=== PATIENT | female | born 1975 | race Caucasian/White ===

== ENCOUNTER → 2018-04-03 11:03 | Outpatient (CLI) | payer MEDICAID, SELFPAY ==
[2018-04-04 14:39] LABS: HPV Reflexed? NOT INDICATED
== END ==
PROVIDERS: Visit Provider Obstetrics & Gynecology
DX: Z12.4 Encounter for screening for malignant neoplasm of cervix (principal)
CPT/HCPCS: 88175; G0145

== ENCOUNTER → 2019-03-13 | Outpatient (CLI) | payer MEDICAID, SELFPAY ==
[2014-09-14 22:21] VITALS: BMI 41.0
[2019-03-19 08:55] LABS: HPV Reflexed? NOT INDICATED
== END | disposition home or self-care (01) ==
LOC: WOBLAB 13:51
PROVIDERS: Visit Provider Obstetrics & Gynecology
DX: Z12.4 Encounter for screening for malignant neoplasm of cervix (principal)
CPT/HCPCS: 87624; 88175; G0145

== ENCOUNTER 2019-09-04 17:05 | Emergency (ER) | payer MEDICAID, SELFPAY ==
[2019-09-04 17:05] VITALS: BP 133/74; PULSE 84; RESP 16; TEMP 36.7; BMI 41.2
[2019-09-04 17:46] LABS: Absolute Neutrophil Count 4.3 X10^3/uL (2.0-7.7); Bacteria 0 SEEN /hpf (None Seen); Basophil# 0.04 X10^3/uL; Basophil% 0.6 % (0-1); Color, Urine Yellow (Yellow); Eosinophil# 0.05 X10^3/uL; Eosinophils% 0.7 % (0-5); Glucose, Dipstick Normal (Normal); Hematocrit 43.2 % (37-47); Hemoglobin 14.2 g/dL (12.0-15.0); Ketone-Dipstick 5 mg/dl (Negative); Leukocyte Esterase-Dipstick Negative /ul (Negative); Lymphocyte % 26.1 % (19-41); Mean Corp Hgb Conc 32.9 g/dL (32-36); Mean Corpuscular Hgb 30.7 pg (27.0-32.0); Mean Corpuscular Volume 93.5 fL (81-99); Mean Platelet Vol. 9.5 fl (6.2-12.0); Monocyte# 0.94 X10^3/uL; Monocyte% 12.9 % (0-10); Mucous, Urine 0 SEEN /hpf (<or=2+); NRBC Flagged by Analyzer 0 % (0-5); Neutrophil # 4.32 X10^3/uL (2.7-7.7); Neutrophil % 59.4 % (47-70); Nitrite-Dipstick Negative (Negative); Occult Blood-Urine 10 /ul (Negative); Platelet Count 219 K/mm3 (150-450); Protein-Dipstick Negative (Negative); RBC Distribution Width CV 11.9 % (11.6-14.6); RBC Distribution Width SD 40.9 fl (35.1-43.9); Red Blood Count 4.62 M/mm3 (4.2-5.4); Specific Gravity, Urine 1.025 (1.002-1.030); Urine Bilirubin Dipstick Negative (Negative); Urine Clarity Clear (Clear); Urine Urobilinogen Normal (Normal); White Blood Count 7.3 K/mm3 (4.4-11.0)
[2019-09-04 17:53] LABS: Squamous Epithelial Cells - UA 0-5 SEEN /hpf (5-10)
[2019-09-04 17:55] LABS: Red Blood Cells-Urine 0-5 SEEN /hpf (0-5)
[2019-09-04 17:56] LABS: White Blood Cells 0-5 SEEN /hpf (0-5)
[2019-09-04 18:00] LABS: D-Dimer Quantitative (DVT/PE) 0.68 FEU/ug/m (0.27-0.49)
[2019-09-04 18:04] LABS: ALB/GLOB Ratio 0.9 RATIO (0.9-2.4); AST(SGOT) 22 U/L (15-37); Alanine Aminotransfer ALT/SGPT 35 U/L (13-56); Albumin, Serum 3.6 g/dL (3.2-5.0); Alkaline Phosphatase 63 U/L (45-117); Anion Gap 5 (5-15); BUN 12 mg/dL (7-18); BUN/Creat Ratio 17.3 RATIO (10-20); Calcium,Total 9.3 mg/dL (8.5-10.1); Chloride 106 mmol/L (98-107); Creatinine, Serum 0.69 mg/dL (0.55-1.02); EST Glomerular Filtration Rate 97 mL/min (>60); Est Glom Filt Rate - Afr Amer 117 mL/min (>60); Estimated Creatinine Clearance 96.39 ml/min; Globulin 4.2 g/dL (2.2-4.2); Glucose 113 mg/dL (74-106); Lipase 122 U/L (73-393); Potassium 3.9 mmol/L (3.5-5.1); Protein, Total 7.8 g/dL (6.4-8.2); Sodium Level 141 mmol/L (136-145)
--- NOTE | 2019-09-04 18:14 | CT_ITS ---
STUDY: CTA CHEST REASON FOR EXAM: Female, 43 years old. Back pain RADIATION DOSAGE (If Supplied By Facility): CTDIvol = ( 16.09 ) mGy, DLP = ( 526.13 ) mGycm TECHNIQUE: The examination was performed with the intravenous administration of IV Isovue 370 100ML. Post-processing of the angiographic images was performed, with multiplanar reformation and 3D reconstruction. Individualized dose optimization techniques were used for this CT. COMPARISON: None. FINDINGS: Normal enhancement of the main pulmonary artery and right and left pulmonary arteries. Normal enhancement of the bilateral peripheral pulmonary arteries. There is no demonstrated pulmonary embolism. Normal thoracic aorta and visualized great vessels. There is no demonstrated aortic dissection. Normal heart and pericardium. Normal mediastinum. Normal hilar regions. Normal visualized trachea and bronchi. The lungs are well expanded. Normal pulmonary parenchyma. Normal pleura. Normal chest wall structures. Normal osseous structures. Normal visualized upper abdomen. CT/CTA Chest W/WO Contrast IMPRESSION: Normal CTA chest examination, without a demonstrated pulmonary embolism or arterial dissection. Electronically Signed: Lew Escobar, at 18:55 EDT Tel , Service support ,
[2019-09-04] MEDS: 0.9% Normal Saline 1,000 ML 1000 ML IV (18:15)
[2019-09-04 18:20] LABS: Internal QC Validated? YES +Cl - CLEAR BKGD; Pregnancy, Serum, hCG Quali. NEGATIVE Negative
--- NOTE | 2019-09-04 18:23 | ED.VISSUMM ---
- ER Visit Summary Date of Service: 09/04/19 Chief Complaint: Back pain History of Present Illness: The patient is a [address] Bolden. She reports that she has right-sided back pain that began 9 days ago after flying to [place]. She denies any ankle swelling or calf pain. She is not having chest pain or shortness of breath. Patient describes as a sharp pain with movement, but an aching constant pain. Is 10 out of 10 at worst and 5 out of 10 currently. Is worsened by movement or eating. Is relieved by laying down and Tylenol. She denies any relation to her legs. No numbness, tingling, or weakness in her legs. No numbness in her groin. No problems with her bowels or her bladder. She denies any recent trauma. No fall, MVA, or change in activity. Patient reports that she has had back pain in the past with pancreatitis, but that this is not similar to that. She also has a history of kidney stones and this is not similar to that. Physical Examination: Vitals: Stable. Afebrile. General: A&O x 3. NAD. Cardiovascular exam: Regular rate and rhythm, no murmur, rub or gallop. Respiratory exam: Clear to auscultation bilaterally. No wheezes or stridor. Abdominal exam: Soft, nontender, nondistended, normal bowel sounds. No peritoneal signs. Back: No vertebral or flank tenderness. Pain is not reproduced with movement. Negative straight leg bilaterally. 5/5 DF, PF, EHL bilaterally. Normal sensation to light touch throughout. Extremity: No clubbing, cyanosis, or edema. Test Results: CBC shows lymphocytes of 13. Chem-7 shows a glucose of 113. LFTs are normal. Lipase is 122. UA is negative. D-dimer 0.68. Clinical Impression(s) from Imaging Studies Chest CTA 09/04/19 18:14 IMPRESSION: Normal CTA chest examination, without a demonstrated pulmonary embolism or arterial dissection. Electronically Signed: Lew Escobar, at 18:55 EDT Tel , Service support , Emergency Department Course and Treatment: Patient refused pain and nausea medications. She is resting comfortably. Treatment Plan: Patient refused pain medications for home. I had a prolonged discussion with her at this time I do not have an expiration for her back pain. She is instructed to follow-up her primary care physician 1 to 2 days if not improving. Return to the emergency department for any worsening symptoms. Disposition: To home in improved and stable condition. Impression: 1. Back pain, uncertain cause. This note was generated with [employer] dictation software. It may contain incorrect words, spelling, and punctuation that were not noted in review of the chart prior to signing ED Disposition - Plan for ED Patient: Disposition: Home or Assisted Living Instructions: BACK PAIN (Acute or Chronic) Referrals: Miki Garcia [Other] - 1-2 Days if not improving
[2019-09-04 18:38] VITALS: RESP 18; O2SAT 96
[2019-09-04 19:36] VITALS: BP 116/77; PULSE 64; RESP 16; O2SAT 96
== END 2019-09-04 19:37 | disposition home or self-care (01) ==
PROVIDERS: Emergency Provider Emergency Medicine
DX: M54.9 Dorsalgia, unspecified (principal); R11.0 Nausea; K58.9 Irritable bowel syndrome, unspecified; Z87.19 Personal history of other diseases of the digestive system; Z87.442 Personal history of urinary calculi; Z90.49 Acquired absence of other specified parts of digestive tract; Z98.84 Bariatric surgery status
CPT/HCPCS: 71275; 80053; 81001; 83690; 84703; 85025; 85379; 94760; 96360; 99283; J7030; Q9967

== ENCOUNTER 2019-09-15 20:57 | Emergency (ER) | payer MEDICAID, SELFPAY ==
[2019-09-15 20:58] VITALS: BP 131/94; PULSE 75; RESP 15; TEMP 37.1; O2SAT 95; BMI 38.5
--- NOTE | 2019-09-15 21:28 | CT_ITS ---
STUDY: CT ABDOMEN AND PELVIS WITH CONTRAST REASON FOR EXAM: Female, 43 years old. Pain and diarrhea RADIATION DOSAGE (If Supplied By Facility): CTDIvol = ( 17.05 ) mGy, DLP = ( 1340.56 ) mGycm TECHNIQUE: Transaxial images were obtained from the dome of the diaphragm to the symphysis pubis with oral contrast. IV/Oral Isovue 370 100ml was administered. Sagittal and coronal images were reconstructed. Individualized dose optimization techniques were used for this CT. COMPARISON: 09/15/2014 FINDINGS: The visualized lung bases are unremarkable. The visualized portions of the heart are within normal limits. Normal liver. There is non-visualization of the gallbladder, which may be secondary to either contraction or a prior cholecystectomy. Normal spleen. Normal pancreas. Normal bilateral adrenal glands. Normal right kidney. 1 mm nonobstructing left renal stone. Gastric bypass. Normal small intestine. Normal colon. The appendix is visualized and appears normal. Normal abdominal aorta. Normal inferior vena cava. Normal retroperitoneum. Normal urinary bladder. Anterior abdominal wall varices. Supraumbilical anterior abdominal wall fat herniation. Normal osseous structures. CT/Abdomen/Pelvis WITH Contrast IMPRESSION: No evidence of acute intestinal pathology or acute obstructive uropathy. Electronically Signed: Theo Wesley MD at 23:35 EDT Tel , Service support ,
[2019-09-15 21:37] LABS: Absolute Lymphocyte Count 2.62 X10^3/uL (0.83-4.51); Absolute Neutrophil Count 3.1 X10^3/uL (2.0-7.7); Basophil# 0.05 X10^3/uL; Basophil% 0.7 % (0-1); Eosinophil# 0.97 X10^3/uL; Eosinophils% 12.7 % (0-5); Hematocrit 42.2 % (37-47); Hemoglobin 13.9 g/dL (12.0-15.0); Lymphocyte # 2.62 X10^3/ul (4.0); Lymphocyte % 34.4 % (19-41); Mean Corp Hgb Conc 32.9 g/dL (32-36); Mean Corpuscular Hgb 30.7 pg (27.0-32.0); Mean Corpuscular Volume 93.2 fL (81-99); Monocyte# 0.88 X10^3/uL; Monocyte% 11.5 % (0-10); NRBC Flagged by Analyzer 0 % (0-5); Neutrophil # 3.08 X10^3/uL (2.7-7.7); Neutrophil % 40.4 % (47-70); Platelet Count 238 K/mm3 (150-450); RBC Distribution Width CV 11.9 % (11.6-14.6); RBC Distribution Width SD 40.5 fl (35.1-43.9); Red Blood Count 4.53 M/mm3 (4.2-5.4); White Blood Count 7.6 K/mm3 (4.4-11.0)
[2019-09-15] MEDS: 0.9% Normal Saline 1,000 ML 125 ML IV (21:40)
[2019-09-15] MEDS: Hyoscyamine Sulfate 0.125 MG Tablet SUBLINGUAL (21:49)
[2019-09-15 21:51] LABS: ALB/GLOB Ratio 0.9 RATIO (0.9-2.4); AST(SGOT) 19 U/L (15-37); Alanine Aminotransfer ALT/SGPT 28 U/L (13-56); Albumin, Serum 3.6 g/dL (3.2-5.0); Alkaline Phosphatase 58 U/L (45-117); Anion Gap 4 (5-15); BUN 16 mg/dL (7-18); Calcium,Total 8.7 mg/dL (8.5-10.1); Chloride 110 mmol/L (98-107); EST Glomerular Filtration Rate 97 mL/min (>60); Est Glom Filt Rate - Afr Amer 117 mL/min (>60); Estimated Creatinine Clearance 102.38 ml/min; Globulin 4.2 g/dL (2.2-4.2); Glucose 83 mg/dL (74-106); Lipase 241 U/L (73-393); Potassium 3.9 mmol/L (3.5-5.1); Protein, Total 7.8 g/dL (6.4-8.2); Sodium Level 141 mmol/L (136-145)
--- NOTE | 2019-09-15 22:16 | ED.DCSUM_ITS ---
History of Present Illness Chief Complaint: Abd Pain Informant: Patient Onset: Weeks - 3 Narrative: Presents with waxing and waning abdominal pain crampy in nature for the past 3 weeks. Increasing bloating today after eating. History of cholecystectomy. History of gastric bypass on 2005. Normal bowel movement. No diarrhea. No urinary symptoms. Reports was seen here little week ago with increasing back pain secondary to the abdominal pain. Records reviewed noting work-up to rule out PE from her recent travel that was negative. Patient reports her abdominal cramping with set up for back pain that radiates up towards her chest. Symptoms current subsiding, no current nausea. States had upper and lower endoscopies at [facility] a couple years ago diagnosed with irritable bowel syndrome. She states due to increasing bloatedness or concerns her for came here. Patient has an appointment with the GI physicians at [facility] tomorrow at 3 PM. No fever, chills, sweats. Prior similar symptoms: Yes Past Medical History - Allergies and Home Meds Allergies/Adverse Reactions: Allergies Penicillins Allergy (Verified 09/15/19 21:03) Unknown Primary Care Physician: Miki Garcia [Other] Smoking Status: Former smoker Review of Systems General: Denies: Chills, Fever, Sweats Eyes: Denies: Visual changes - bilaterally, Diplopia ENT: Denies: Rhinorrhea, Sore throat Cardiovascular: Denies: Chest pain, Palpitations Respiratory: Denies: Dyspnea, Cough, Dyspnea on exertion Gastrointestinal: Reports: Abdominal pain. Denies: Nausea, Vomiting, Diarrhea, Melena, Hematochezia Genitourinary: Denies: Dysuria, Hematuria, Frequency Musculoskeletal: Denies: Back pain, Extremity Pain Skin: Denies: Rash, Wounds Neurological: Denies: Headache, Weakness, Numbness Physical Exam Vital Signs/Narrative: Vital Signs Temp Pulse Resp BP Pulse Ox 09/15/19 20:58 98.8 F 75 15 131/94 H 95 Inital Vital Signs reviewed: Yes General: Well nourished, Well developed, No Acute Distress Head: Normocephalic, Atraumatic Eyes: Perrl, EOMI ENT: Moist mucous membranes, No rhinorrhea Neck: Supple, Nontender Cardiovascular: Regular rate, Regular rhythm, No murmurs Respiratory: No distress, CTA bilaterally, Chest nontender Abdomen: Soft, Nontender, Nondistended, Normal bowel sounds, - - Negative McBurney's tenderness, no guarding or rebound. Negative for: Chaudhari's sign Back: Nontender, Normal Inspection Extremities: Nontender, No edema Skin: Normal color, No rash Neurological: Alert, Oriented x3, Cranial nerves II-XII grossly intact, Normal Strength, Normal Sensation Psychological: Normal affect, Normal Mood Diagnostic/Tx/Re-eval Abnormal Lab Results 09/15/19 09/15/19 09/15/19 21:17 21:17 21:55 WBC 7.6 RBC 4.53 Hgb 13.9 Hct 42.2 MCV 93.2 MCH 30.7 MCHC 32.9 RDW Std Deviation 40.5 RDW Coeff of Syd 11.9 Plt Count 238 MPV 10.0 Immature Gran % (Auto) 0.300 Neut % (Auto) 40.4 L Lymph % (Auto) 34.4 [place] % (Auto) 11.5 H Eos % (Auto) 12.7 H Baso % (Auto) 0.7 Absolute Neuts (auto) 3.1 Absolute Lymphs (auto) 2.62 Nucleated RBC % 0 Sodium 141 Potassium 3.9 Chloride 110 H Carbon Dioxide 27.0 Anion Gap 4 L BUN 16 Creatinine 0.70 Estim Creat Clear Calc 102.38 Est GFR (MDRD) Af Amer 117 Est GFR (MDRD) Non-Af 97 BUN/Creatinine Ratio 23.0 H Glucose 83 Calcium 8.7 Total Bilirubin 0.30 AST 19 ALT 28 Alkaline Phosphatase 58 Total Protein 7.8 Albumin 3.6 Globulin 4.2 Albumin/Globulin Ratio 0.9 Lipase 241 Urine Color Yellow Urine Clarity Sl. Cloudy Urine pH 5.0 Ur Specific [place] 1.020 Urine Protein Negative Urine Glucose (UA) Normal Urine Ketones Negative Urine Occult Blood 10 H Urine Nitrite Negative Urine Bilirubin Negative Urine Urobilinogen Normal Ur Leukocyte Esterase 25 H Urine RBC 0-5 SEEN Urine WBC 0-5 SEEN Ur Squamous Epith Cells 0-5 SEEN Urine Bacteria RARE Urine Mucus 2+ Clinical Impression(s) from Imaging Studies Abdomen/Pelvis CT 09/15/19 21:28 IMPRESSION: No evidence of acute intestinal pathology or acute obstructive uropathy. Electronically Signed: Theo Wesley MD at 23:35 EDT Tel , Service support , - Medical Decision Making Patient vital signs stable, nonsurgical abdomen on exam. Reported increasing bloating today, last bowel movement yesterday. 3 weeks of waxing waning symptoms. Discussed work-up with contrast CT abdomen pelvis. She agrees. Abdominal labs were normal urine noted mild blood and leukocytes she is asymptomatic. CT scan negative for any acute process. She was treated with Levsin in the ED on reevaluation symptoms are improving. She states she is moving gas helping with symptoms. There is no obstruction on CT. Prescription written for symptom control. She will keep her GI appointment tomorrow. All questions were answered. ED Disposition - Plan for ED Patient: Disposition: Home or Assisted Living Diagnosis: Abdominal pain Instructions: ABDOMINAL PAIN, Unknown Cause, (Female) Prescriptions: Hyoscyamine Sulfate 0.125 mg SL Q6H PRN PRN #12 tab.subl PRN Reason: abdominal pain Referrals: Miki Garcia [Other] Additional Instructions: Normal abdominal laboratory studies with CBC, BMP, lipase, liver enzymes. CT scan abdomen pelvis with IV and oral contrast shows no acute process. Keep your appointment with GI tomorrow.
[2019-09-15 22:22] LABS: Color, Urine Yellow (Yellow); Glucose, Dipstick Normal (Normal); Ketone-Dipstick Negative (Negative); Leukocyte Esterase-Dipstick 25 /ul (Negative); Nitrite-Dipstick Negative (Negative); Occult Blood-Urine 10 /ul (Negative); Protein-Dipstick Negative (Negative); Urine Bilirubin Dipstick Negative (Negative); Urine Clarity Sl. Cloudy (Clear); Urine Urobilinogen Normal (Normal)
[2019-09-15 22:29] LABS: Mucous, Urine 2+ /hpf (<or=2+); Red Blood Cells-Urine 0-5 SEEN /hpf (0-5); White Blood Cells 0-5 SEEN /hpf (0-5)
[2019-09-15 22:30] LABS: Bacteria RARE /hpf (None Seen); Squamous Epithelial Cells - UA 0-5 SEEN /hpf (5-10)
[2019-09-15 23:57] VITALS: BP 106/73; PULSE 58; RESP 16; O2SAT 99
== END 2019-09-15 23:58 | disposition home or self-care (01) ==
PROVIDERS: Emergency Provider Emergency Medicine
DX: R10.9 Unspecified abdominal pain (principal); Z87.891 Personal history of nicotine dependence; Z98.84 Bariatric surgery status
CPT/HCPCS: 74177; 80053; 81001; 83690; 85025; 99284; J7030; Q9967; A4216

== ENCOUNTER → 2021-10-07 09:45 | Outpatient (CLI) | payer MEDICAID, SELFPAY ==
[2021-10-14 15:31] LABS: HPV Reflexed? NOT INDICATED
== END ==
PROVIDERS: Visit Provider Obstetrics & Gynecology
DX: Z12.4 Encounter for screening for malignant neoplasm of cervix (principal)
CPT/HCPCS: 88175; G0145

== ENCOUNTER → 2022-12-20 | Outpatient (CLI) | payer MEDICAID, SELFPAY ==
--- NOTE | 2022-12-20 10:29 | BI_ITS ---
MAMMOGRAPHY - BILATERAL SCREENING REASON FOR EXAM: Female, 47 years old. Routine annual screening examination. PERTINENT HISTORY: Grandmothers with breast cancer. TECHNIQUE: Digital bilateral breast david (3D mammographic acquisition) in the CC and MLO projections. 2-D mediolateral oblique (MLO) and craniocaudad (CC) views of both breasts were obtained. CAD: Full Field Digital Mammography with Computer Added Detection was performed. COMPARISON: Comparison is made with prior outside examinations 06/07/2017. FINDINGS: Breast Composition: The breasts are almost entirely fatty. There are no dominant masses or suspicious calcifications. Stable small benign-appearing bilateral axillary lymph. No other significant abnormalities are identified. There has been no significant change since the prior study. BI/SCRN MAMM (CAD)W/DAVID BILAT IMPRESSION: Stable bilateral screening mammogram. Yearly follow-up mammogram recommended. (A) ASSESSMENT CATEGORY: BIRADS Category 2: Benign. A letter regarding these results will be sent to the patient by the facility within 30 days. Approximately 10% of breast cancers are not detected by mammography. A normal mammogram should not delay biopsy of a clinically suspicious abnormality. [id number] Electronically Signed: Milton Stockton MD at 13:29 EST ,
== END | disposition home or self-care (01) ==
PROVIDERS: Referring Provider Obstetrics & Gynecology; Visit Provider Obstetrics & Gynecology
DX: Z12.31 Encounter for screening mammogram for malignant neoplasm of breast (principal); Z80.3 Family history of malignant neoplasm of breast
CPT/HCPCS: 77063; 77067